=== PATIENT | female | born 1950 | race Caucasian/White ===

== ENCOUNTER 2025-02-22 17:59 | Emergency (ER) | payer MEDICARE ==
[2025-02-22] MEDS: Lidocaine 1% with EPINEPHrine 1:100,000 10 ML MDV INJECT ONE (18:34)
[2025-02-22] MEDS: Lidocaine 2% with EPINEPHrine 1:100,000 20 ML MDV ONE (18:36)
[2025-02-22] MEDS: Lidocaine 2% with EPINEPHrine 1:100,000 20 ML MDV INJECT ONE (18:36)
[2025-02-22 18:46] LABS: BASOPHILS ABSOLUTE AUTO 0.1 K/mm3 (0.0-0.2); BASOPHILS PERCENT AUTO 0.9 % (0.0-1.0); EOSINOPHILS ABSOLUTE AUTO 0.2 K/mm3 (0.0-0.4); EOSINOPHILS PERCENT AUTO 1.7 % (0.0-6.0); IMMATURE GRAN ABSOLUTE AUTO 0.04 K/mm3 (0.00-0.05); IMMATURE GRAN PERCENT AUTO 0.4 % (0.0-0.4); LYMPHOCYTES ABSOLUTE AUTO 3.0 K/mm3 (1.0-4.8); LYMPHOCYTES PERCENT AUTO 29.7 % (24.0-44.0); MEAN PLATELET VOLUME 9.4 fl (9.4-12.3); MONOCYTES ABSOLUTE AUTO 0.6 K/mm3 (0.0-0.8); MONOCYTES PERCENT AUTO 5.6 % (0.0-8.0); NEUTROPHILS ABSOLUTE AUTO 6.3 K/mm3 (1.8-7.7); NEUTROPHILS PERCENT AUTO 61.7 % (41.0-71.0); NRBC ABSOLUTE 0.00 (0.00-0.02); NRBC PERCENT 0.0 % (0.0-0.2); PLATELET COUNT,PLT 277 K/mm3 (150-400); RED BLOOD CELL COUNT 4.38 M/mm3 (4.10-5.30); WHITE BLOOD CELL COUNT,WBC 10.22 K/mm3 (3.9-11.3)
== END 2025-02-22 20:14 | disposition home or self-care (01) ==
LOC: JD.ED 17:59
DX: R04.0 Epistaxis (principal)
CPT/HCPCS: 30901; 36415; 85025; 96374; 99283; A9270; J2004